=== PATIENT | female | born 2000 | race Caucasian/White ===

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

== ENCOUNTER → 2021-01-22 | Outpatient (CLI) | payer BC ==
[~2021-01-22] MED LIST: CYCLOBENZAPRINE5 MG PO; IBUPROFEN800 MG PO; PHENERGAN 25 MG25 M1 PO; TESSALON PERLE100 MG PO; ZITHROMAX250 MG PO
[2021-01-22 04:55] LABS: BUN/CREATININE RATIO 16 (0-10)
== END ==
LOC: LAB 04:07
PROVIDERS: Nurse Practitioner Family
DX: E04.1 Nontoxic single thyroid nodule (principal); E27.8 Other specified disorders of adrenal gland; Z86.39 Personal history of other endocrine, nutritional and metabolic disease
CPT/HCPCS: 80053; 82627; 84439; 84443

== ENCOUNTER 2021-04-11 12:08 | Emergency (ER) | payer SELFPAY ==
[~2021-04-11 12:08] MED LIST changes: -CYCLOBENZAPRINE5 MG PO; -IBUPROFEN800 MG PO
[2021-04-11] MEDS ORDERED: IBUPROFEN800 MG PO (14:07)
[2021-04-11] MEDS ORDERED: CYCLOBENZAPRINE5 MG PO (14:07)
== END 2021-04-11 14:10 | disposition home or self-care (01) ==
LOC: ER1 12:08
DX: S29.012A Strain of muscle and tendon of back wall of thorax, initial encounter (principal); V49.40XA Driver injured in collision with unspecified motor vehicles in traffic accident, initial encounter; Y92.410 Unspecified street and highway as the place of occurrence of the external cause
CPT/HCPCS: 72072; 96372; 99283; J1885